=== PATIENT | female | born 1945 | race Caucasian/White ===

== ENCOUNTER 2016-11-25 21:05 | Emergency (ER) | payer OTHER ==
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
--- NOTE | 2016-11-26 00:18 | ED ORDER SUMMARY ---
..... Patient: PAULINA CATALAN OrderSheet [facility] VisitID: [id number] [address] [place] [address] 70y, F Registration Date/Time: 11/25/2016 ORDER SHEET Weight: 73.4 kg (stated) Allergies: No Known Drug Allergy GENERAL ORDERS: Knee 4V Left Urgent (22:56 11/25/2016 Jen MARTINEZ) (Ack 22:57 Tanvir) (23:07 RFay) MEDICATION ORDERS: IV FLUIDS: ORDER SHEET NOTES: [Electronically signed by Mckinley Calvillo R.N. (01:52 11/26/2016)] [Electronically signed by Emelia Zheng MD (18:03 11/27/2016)] [Electronically locked/signed by Mckinley Calvillo R.N. (01:52 11/26/2016)]
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
--- NOTE | 2016-11-26 00:18 | ED ORDER SUMMARY ---
..... Patient: PAULINA CATALAN OrderSheet [facility] VisitID: [id number] [address] [place] [address] 70y, F Registration Date/Time: 11/25/2016 ORDER SHEET Weight: 73.4 kg (stated) Allergies: No Known Drug Allergy GENERAL ORDERS: Knee 4V Left Urgent (22:56 11/25/2016 Jen MARTINEZ) (Ack 22:57 Tanvir) (23:07 RFay) MEDICATION ORDERS: IV FLUIDS: ORDER SHEET NOTES: [Electronically signed by Mckinley Calvillo R.N. (01:52 11/26/2016)] [Electronically signed by Emelia Zheng MD (18:03 11/27/2016)] [Electronically locked/signed by Mckinley Calvillo R.N. (01:52 11/26/2016)]
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
--- NOTE | 2016-11-27 18:03 | ED MAR SUMMARY ---
..... Medication Administration Record [facility] [address] [place], [place] [id number] Patient: PAULINA CATALAN Visit ID: [id number] 70y, F Weight: 73.4 kg Height/Length: 64 in BMI: 27.8 ALLERGIES: No Known Drug Allergy
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
--- NOTE | 2016-11-27 18:03 | ED MED RECONCILIATION SUMMARY ---
Patient: PAULINA CATALAN Medication Reconciliation Report [facility] VisitID: [id number] [address] [place] [address] 70y, F Registration Date/Time: 11/25/2016 Weight: 73.4 kg Height/Length: 64 in. BMI: 27.8 ALLERGIES: No Known Drug Allergy The patient's Home Medications are listed below: CONTINUE TAKING THE FOLLOWING MEDICATIONS: Asa 81mg daily Atorvastatin Calcium Oral 80 mg, daily Escitalopram Oxalate Oral 20 mg, daily Lexapro Oral Lorsartan 50mg daily Ranitidine HCl Oral 150 mg, 2x a day The source(s) of the original Home Medication information: Not obtained. The following Medications were given to the patient in the Emergency Department: None. The following Medications were prescribed to the patient: Hydrocodone/APAP 5mg / 325mg: take 1-2 orally every 6 hours as needed for pain. Dispense twelve (12). No refill. -- Emelia Zheng MD Ibuprofen 800 mg tablets: take 1 tablet orally every 8 hours as needed for pain. Dispense fifteen (15). No refill. -- Emelia Zheng MD
--- NOTE | 2016-11-27 18:03 | ED MED RECONCILIATION SUMMARY ---
Patient: PAULINA CATALAN Medication Reconciliation Report [facility] VisitID: [id number] [address] [place] [address] 70y, F Registration Date/Time: 11/25/2016 Weight: 73.4 kg Height/Length: 64 in. BMI: 27.8 ALLERGIES: No Known Drug Allergy The patient's Home Medications are listed below: CONTINUE TAKING THE FOLLOWING MEDICATIONS: Asa 81mg daily Atorvastatin Calcium Oral 80 mg, daily Escitalopram Oxalate Oral 20 mg, daily Lexapro Oral Lorsartan 50mg daily Ranitidine HCl Oral 150 mg, 2x a day The source(s) of the original Home Medication information: Not obtained. The following Medications were given to the patient in the Emergency Department: None. The following Medications were prescribed to the patient: Hydrocodone/APAP 5mg / 325mg: take 1-2 orally every 6 hours as needed for pain. Dispense twelve (12). No refill. -- Emelia Zheng MD Ibuprofen 800 mg tablets: take 1 tablet orally every 8 hours as needed for pain. Dispense fifteen (15). No refill. -- Emelia Zheng MD
--- NOTE | 2016-11-27 18:03 | ED MAR SUMMARY ---
..... Medication Administration Record [facility] [address] [place], [place] [id number] Patient: PAULINA CATALAN Visit ID: [id number] 70y, F Weight: 73.4 kg Height/Length: 64 in BMI: 27.8 ALLERGIES: No Known Drug Allergy
== END 2016-11-26 00:15 | disposition home or self-care (01) ==
LOC: ED SRH 21:05
DX: S83.412A Sprain of medial collateral ligament of left knee, initial encounter (principal); V43.52XA Car driver injured in collision with other type car in traffic accident, initial encounter; Y93.89 Activity, other specified; Y92.410 Unspecified street and highway as the place of occurrence of the external cause; Y99.9 Unspecified external cause status; I10 Essential (primary) hypertension; Z79.899 Other long term (current) drug therapy; Z88.8 Allergy status to other drugs, medicaments and biological substances; Z79.82 Long term (current) use of aspirin